=== PATIENT | female | born 1975 | race Caucasian/White ===

== ENCOUNTER 2017-04-28 03:51 | Emergency (ER) | payer OTHER ==
[~2017-04-28] VITALS: Ht 175.3 cm; Wt 83.0 kg
[2017-04-28 07:48] VITALS: BP 00/00
== END 2017-04-28 07:49 ==
LOC: M.ERS 03:51
DX: I46.9 Cardiac arrest, cause unspecified (principal); M06.9 Rheumatoid arthritis, unspecified